=== PATIENT | female | born 1995 ===

== ENCOUNTER 2020-07-22 08:00 | Outpatient (CLI) | payer OTHER ==
[2020-07-22] MEDS ORDERED: OMNIPAQUE 350 MG/ML, 100ML BOTTLE ONE (18:22)
== END 2020-07-22 23:59 | disposition home or self-care (01) ==
LOC: RAD 08:00 → EDBD 17:00 → RAD 23:59
PROVIDERS: ATTEND Family Medicine
DX: R10.9 Unspecified abdominal pain (principal)
CPT/HCPCS: 74177; Q9967